=== PATIENT | female | born 1930 | race Caucasian/White ===

== ENCOUNTER → 2016-05-10 | Outpatient (CLI) | payer OTHER ==
[~2016-05-10] MED LIST: ALBINS INH; ALBUAER2 INH; AMX500 PO; ASPEC81 PO; ATEN50TA8 PO; ATV5 PO; CALC500C3 PO; CETI10TA84 PO; CHOL100010 PO; CLC100X PO; CLTP PO; ECRCR TOP; FLVHFA44 INH; HYDR-3126 PO; HYOS1TAB PO; LEVO100T7 PO; LEVO1TAB33 PO; LOSA50TA6 PO; MISCCAP80 PO; MULTCAP33 PO; NXM/40 PO; NYSS/ PO; ONDA4TAB46 PO; POLY335025 PO; PRED-301 PO; PRED10TA PO; PSEU60TA80 PO; TRAZ50TA35 PO; TRIA3AER NAE; TYLOTC500 PO; VSC/10 PO
--- NOTE | 2016-05-10 12:29 | DIAGNOSTIC IMAGING REPORT ---
THORACIC SPINE MRI HISTORY: Pain BACK PAIN TECHNIQUE: Multiplanar multisequence MRI of the thoracic spine was performed without the use of contrast. COMPARISON: None. FINDINGS: Signal characteristics of the T8 vertebral body show evidence for bone marrow edematous change. There is approximate 10-15% compression deformities. Endplate. There is near complete compression deformity of T11. There is posterior displacement of components of the inferior margin of the vertebral body based on the sagittal images. There is also complete compression deformity of L1. Moderate compression deformity of L3 is noted. These in general appear to be secondary to osteoporotic compression deformities. Transaxial images throughout the entire thoracic region shows a mild compression deformity of T8. No significant compromise of the spinal canal is present. Neuroforamina are patent bilaterally. The complete compression deformity of T11 is noted. This appears to be subacute and/or chronic. Inferior margin of the vertebral body is displaced posteriorly with partial compromise of the anterior subarachnoid space. There is no significant impact upon the thoracic spinal cord. There is a moderate narrowing of the neuroforamina bilaterally at this level The L1 vertebral body shows posterior displacement of the superior and posterior margin of the vertebral body. This compromises the anterior posterior dimension of the spinal canal x 5 mm. No significant impact upon the lower aspect of the cord is present. There is a moderate narrowing of the right neuroforamina at osteophytic bases. 1. IMPRESSION: 1. Mild compression deformity of T8 felt to be an osteoporotic compression deformity. 2. Near complete compression deformity of T11 and L1 felt to be nonacute. 3. Considerable degenerative intervertebral disc change throughout the entire thoracic region. 4. All levels show mild posterior displacement of the posterior margins of the vertebral bodies, although a significant and/or high degree of narrowing of the spinal canal is not felt to be present. Electronically signed by: Yifan Mays M.D. 05/10/2016 12:28 PM Dictated Date/Time: 05/10/2016 12:21 PM
== END | disposition home or self-care (01) ==
LOC: C.MRI 11:13
PROVIDERS: ATTEND Internal Medicine
DX: M80.08XS Age-related osteoporosis with current pathological fracture, vertebra(e), sequela (principal); M54.6 Pain in thoracic spine; G89.29 Other chronic pain

== ENCOUNTER 2018-09-13 10:38 | Inpatient (IN) ==
[2018-09-13] MEDS ORDERED: SODIUM CHLORIDE 0.9% 1000ML 500 ML IV ONE (10:46)
[2018-09-13 11:23] LABS: Basophils # (auto) 0.01 K/uL (0-0.2); Basophils % (auto) 0.1 %; Eosinophils # (auto) 0.13 K/uL (0-0.5); Eosinophils % (auto) 0.9 %; Hematocrit (blood only) 40.2 % (37-47); Hemoglobin 13.4 g/dL (12.0-16.0); Immature Granulocytes # (auto) 0.06 K/uL (0.00-0.02); Immature Granulocytes % (auto) 0.4 %; Lymphocytes % (auto) 0.7 %; Mean Corpuscular Hgb Conc 33.3 g/dL (32-36); Mean Corpuscular Volume 95.3 fL (80-100); Monocytes % (auto) 3.9 %; Neutrophils # (auto) 14.34 K/uL (1.4-6.5); Platelet Count 230 K/uL (130-400); RDW Coefficient of Variation 13.2 % (11.5-14.5); Red Blood Count 4.22 M/uL (4.2-5.4); White Blood Count 15.24 K/uL (4.8-10.8)
[2018-09-13 11:40] LABS: BUN Creatinine Ratio 20.8 (10-20); Blood Urea Nitrogen 27 mg/dl (7-18); Calcium 9.1 mg/dl (8.5-10.1); Carbon Dioxide 27 mmol/L (21-32); Chloride 100 mmol/L (98-107); Est GFR (African American) 42.9; Glucose 129 mg/dl (70-99); Potassium 3.6 mmol/L (3.5-5.1); Sodium 136 mmol/L (136-145)
[2018-09-13 11:48] LABS: Troponin I 0.291 ng/ml (0-0.045)
--- NOTE | 2018-09-13 11:56 | XRay Report ---
XR chest 2V routine HISTORY: Atypical chest pain. COMPARISON: Chest 09/15/2014. FINDINGS: There are low lung volumes. No pneumothorax. Mild diffuse interstitial thickening. This is slightly progressed and may represent developing congestive change. No pleural effusions. Multiple co mpression deformity is within the thoracic spine. There is a large hiatus hernia, unchanged. No focal lung consolidations to suggest pneumonia. IMPRESSION: 1. Mild diffuse interstitial thickening which has progressed. This may represent developing congestiv e change. 2. Large hiatus hernia, unchanged. 3. Multiple old compression deformities within the thoracic spine are again noted. Electronically signed by: Joesph Muniz M.D. 09/13/2018 11:55 AM
[2018-09-13] MEDS ORDERED: SODIUM CHLORIDE 0.9% 500 ML IV SCH (12:00)
[2018-09-13] MEDS ORDERED: cefTRIAXone SODIUM 1,000 MG/50 ML BAG IV STA (12:01)
[2018-09-13 12:21] LABS: Appearance Urine Cloudy (Clear); Bacteria Urine Automated Negative (Negative); Bilirubin Urine Negative (Negative); Blood Urine Negative (Negative); Color Urine Yellow; Epithelial Cell Urine Auto 0-5 /lpf (0-5); Glucose Urine UA Negative (Negative); Ketones Urine Negative (Negative); Leukocyte Esterase Urine 3+ (Negative); Nitrite Urine Negative (Negative); Protein Urine Negative (Negative); RBC Urine Automated 0-4 /hpf (0-4); Specific Gravity Urine 1.012 (1.000-1.030); Urobilinogen Urine Negative (Negative); WBC Urine Automated >30 /hpf (0-5)
[2018-09-13 12:50] LABS: Cast Urine Automated 0 /lpf (0-5)
[2018-09-13] MEDS ORDERED: HYDROCORTISONE SOD SUCCINATE 100 MG/2 ML VIAL IV STA (13:26)
--- NOTE | 2018-09-13 13:40 | History & Physical Report ---
Date of Service September 13, 2018 Assessment & Plan (1) Severe sepsis: (2) Acute UTI: (3) Elevated troponin: This is a 87-year-old female who has a significant past medical history of hypertension, hypothyroidism, polymyalgia rheumatica on chronic low-dose prednisone, PVD, CKD stage III, GERD, depression, asthma, chronic right lower extremity wound who presents to [facility] ED secondary to ill feeling x1 day. Upon admission patient met severe sepsis criteria per current CMS guidelines Patient has a leukocytosis of 15 K, intermittent hypotension with SBP less than 100, initial lactic acid 5.0 Blood cultures and urine cultures were obtained She received 500 mL IVF -and then IVF reduced to 100 cc/h secondary to concern for hypoxia. Unfortunately patient's blood pressure dropped to less than 100 so an additional 500 mL fluid bolus was given Her blood pressures continue to remain labile but upon my last evaluation was 130/70; we reduced fluid rate to 60 cc/h due to concern for potential volume overload She did not get the 30ml/kg due go hx of diastolic dysfxn and hypoxia She received broad spectrum IV antibiotics with Zosyn Stress dose steroid hydrocortisone 100mg IV given due to chronic prednisone therapy Source: Likely urosepsis, patient with dysuria, increased urgency and frequency with urination. Urinalysis positive leukoesterase and greater than 30 WBCs Patient with history of UTI in the past, E. coli pansensitive On admission patient also had elevated troponin at 0.291, no chest pain or shortness of breath. ECG revealed normal sinus rhythm heart rate 69, new V2 T wave inversion Repeat lactate 3.0 and repeat troponin trending down at 0.181 Admit to PCU Continue broad-spectrum IV antibiotics, but switch to IV Zosyn until culture returned Await blood culture and urine culture Continue IVF at 60 cc/h, will be monitoring blood pressure frequently Lactic acid every 4 hours until normal Troponin q4h x 2 clear liquid diet for now, will advance as tolerate Will need PT/OT when more stable (4) Acute worsening of stage 3 chronic kidney disease: Baseline creatinine 0.9-1.0 BUN/creatinine 27 and 1.28 today likely in setting of dehydration and sepsis Continue IVF at 60 cc/h BMP in a.m. (5) PMR (polymyalgia rheumatica): Patient is on chronic prednisone 5 mg daily Hold oral prednisone and placed on stress dose steroids IV hydrocortisone 50 mg every 8 hours Patient did receive 100 mg IV hydrocortisone in ED (6) HTN (hypertension): Blood pressure is improving with IVF resuscitation Will hold losartan, amlodipine, atenolol in setting of sepsis Reinitiate antihypertensives when appropriate (7) Wound of right lower extremity: Chronic right lower extremity wound followed by [facility] wound care Last seen by Tahira ALLEN on 09/06 and was to see wound care today Dressing was removed and wound was inspected, healed Consult wound nurse (8) IBS (irritable bowel syndrome): Levsin as needed (9) Asthma, mild persistent: No acute exacerbation Continue inhaled steroid, DuoNeb as needed (10) Depression: Mood stable Patient on trazodone 75 mg at at bedtime, for insomnia (11) GERD (gastroesophageal reflux disease): Continue PPI (12) DVT prophylaxis: heparin sq q12 hr due to weight Disposition: admit to PCU Follow up: PCP Dr. Amaro upon discharge Patient was seen and examined in collaboration with Dr. Bergeron, please see addendum History of Present Illness Chief Complaint: Ill feeling x1 day. Primary Care Provider: Doron Amaro DO This is a 87-year-old female who has a significant past medical history of hypertension, hypothyroidism, polymyalgia rheumatica on chronic low-dose prednisone, PVD, CKD stage III, GERD, depression, asthma, chronic right lower extremity wound who presents to [facility] ED secondary to ill feeling x1 day. Starting approximately 5 days ago patient noticed symptoms of dysuria, increased urgency and increased frequency with urination. She opted to call PCP on 09/11 regarding symptoms. Due to history of UTI in past she was prescribed Macrobid 100 mg twice daily x5 days. She took her first dose last evening and after dose felt nauseated. She woke up this morning feeling very chilled, fatigued, weak, nausea, dry heaves, myalgia and arthralgias. She denies any documented fever or sweats, chest pain, palpitations, lightheadedness, dizziness, hemoptysis, abdominal pain, flank pain, diarrhea, melena, hematochezia. She does list to having a chronic cough but denies any sputum production or increasing cough frequency. She does have SCHMIDT but this is unchanged. She denies any shortness breath at rest. Up until today her appetite has been doing well. Her home health aide is at bedside and states she was in her normal state of health yesterday. She had a family reunion this past weekend in which she did a lot of cooking. She denies any sick contacts. When home health aide presented to see patient today she was a "different person." Patient overall looked for in appearance to aid. Of significance patient was hospitalized in 12/2017 secondary to chronic right lower extremity traumatic wound requiring IV antibiotics. She is continuing to follow with wound care and states, "it is almost healed." Home health aide elicits she required numerous skin grafts to the site to aid in healing. Allergies Allergy/AdvReac Type Severity Reaction Status Date / Time amoxicillin Allergy Mild PT Verified 09/13/18 11:33 [place] AMOXICILLIN clavulanic acid Allergy Mild HIVES Verified 09/13/18 11:33 levofloxacin [From Levaquin] Allergy Mild ITCHING Verified 09/13/18 11:33 metoclopramide Allergy Mild SICK Verified 09/13/18 11:33 clindamycin Allergy Unknown reaction Verified 09/13/18 11:33 unknown diltiazem Allergy Unknown HIVES Verified 09/13/18 11:33 Home Medications Home Medications Medication Instructions Recorded Confirmed Type Eucerin 1 applic TOPICAL QID PRN 12/15/17 09/13/18 History Flovent HFA 2 puff INHALATION BID 12/15/17 09/13/18 History Premarin See Rx Instructions .ROUTE .COMPLEX 12/15/17 09/13/18 History PreserVision AREDS 1 cap PO BID 12/15/17 09/13/18 History Probiotic 3,000 mmu cells PO DAILY 12/15/17 09/13/18 History acetaminophen 500 mg PO BID 12/15/17 09/13/18 History amlodipine 5 mg PO DAILY 12/15/17 09/13/18 History aspirin 81 mg PO DAILY 12/15/17 09/13/18 History atenolol 100 mg PO DAILY 12/15/17 09/13/18 History cholecalciferol (vitamin D3) 1,000 unit PO DAILY 12/15/17 09/13/18 History cranberry 500 mg PO DAILY 12/15/17 09/13/18 History docusate sodium [Colace] 100 mg PO BID 12/15/17 09/13/18 History esomeprazole magnesium 40 mg PO DAILY 12/15/17 09/13/18 History fluticasone propionate [Flonase 1 spray INTRANASAL BID 12/15/17 09/13/18 History Allergy Relief] hyoscyamine sulfate [Levsin] 0.125 mg PO QID PRN 12/15/17 09/13/18 History ipratropium bromide 2 spray INTRANASAL BID PRN 12/15/17 09/13/18 History levothyroxine [Synthroid] 100 mcg PO QAM 12/15/17 09/13/18 History lorazepam 0.5 mg PO TID PRN 12/15/17 09/13/18 History losartan 50 mg PO BID 12/15/17 09/13/18 History prednisone 5 mg PO DAILY 12/15/17 09/13/18 History solifenacin [Vesicare] 10 mg PO DAILY 12/15/17 09/13/18 History tramadol 50 mg PO BID PRN 12/15/17 09/13/18 History trazodone 75 mg PO HS 12/15/17 09/13/18 History albuterol sulfate 2.5 mg INHALATION QID PRN 09/13/18 09/13/18 History calcium carbonate [Tums] 200 mg PO Q4H PRN 09/13/18 09/13/18 History cetirizine 10 mg PO DAILY PRN 09/13/18 09/13/18 History collagenase clostridium histo. 1 applic TOPICAL UD 09/13/18 09/13/18 History [Santyl] guaifenesin [Mucinex] 600 mg PO BID 09/13/18 09/13/18 History hydroxyzine HCl 25 mg PO Q6H PRN 09/13/18 09/13/18 History nitrofurantoin monohyd/m-cryst 100 mg PO BID 09/13/18 09/13/18 History ondansetron HCl [Zofran] 4 mg PO TID PRN 09/13/18 09/13/18 History Past Med/Surg History Medical History PMR (polymyalgia rheumatica) (Chronic) IBS (irritable bowel syndrome) (Chronic) Asthma, mild persistent (Chronic) Depression (Chronic) Hypothyroidism (Chronic) HTN (hypertension) (Chronic) GERD (gastroesophageal reflux disease) (Chronic) CKD (chronic kidney disease) stage 3, GFR 30-59 ml/min (Chronic) PVD (peripheral vascular disease) (Chronic) Surgical History History of skin graft (Chronic) secondary to non healing wound to RLE approx 5 years ago History of appendectomy (Chronic) History of cholecystectomy (Chronic) History of tonsillectomy (Chronic) Status post epidural steroid injection (Chronic) Hx of fracture of leg (Resolved) L Leg s/p repair Family History Father , 74 Coronary heart disease Black lung Mother Coronary heart disease Brother Coronary heart disease Pulmonary embolism Social History Preferred Language: Icelandic Communication Ability: Effective Visual Impairment: Limited Hearing Ability: Hard of Hearing Beliefs That Will Affect Care: None marital status: Current Living Situation: Family Current Living Situation Comment: grand daughter lives there, 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 Physical Exam Physical Exam: Gen: Elderly, female, ill-appearing, lying in bed, able to answer questions appropriately and converse easily Head: Normocephalic, Atraumatic Eyes: Sclera normal, no conjunctival injection, PERRLA, EOMI ENT: Gross hearing intact, normal pharynx, mucous membranes dry Neck: supple, no adenopathy, No JVD, no bruit, Resp: Clear to auscultation b/l with diminished breath sounds at bases, no wheeze, rales, rhonchi. 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 b/ venous stasis. evidence of RLE lateral ulceration that is healed. no surrounding erythema, edema or warmth. +anterior tibial skin tear noted with cutting off bandage Skin: warm, dry, no rash, negative turgor, cap refill < 2sec Neuro: Alert and oriented x 3, speech normal but slowed, good mood/affect, cran nerve 2-12 intact grossly : deferred Results & Data Vital Signs (Past 12 Hours) Vital Signs Temp Pulse Pulse Resp BP BP Pulse Ox 09/13/18 13:09 69 29 H 96/41 L 93 09/13/18 13:05 68 25 H 96/41 L 92 09/13/18 13:02 67 25 H 96/41 L 93 09/13/18 13:00 67 28 H 91 09/13/18 12:58 67 26 H 100/45 L 92 09/13/18 12:50 64 24 90 09/13/18 12:40 65 23 93 09/13/18 12:30 68 24 95/45 L 94 09/13/18 12:20 69 18 94 09/13/18 12:10 72 29 H 95 09/13/18 12:00 76 26 H 137/84 93 09/13/18 11:54 94 09/13/18 11:30 72 24 118/51 L 94 09/13/18 11:20 68 24 90 09/13/18 11:19 92 09/13/18 11:10 70 25 H 92 09/13/18 11:07 70 23 92 09/13/18 11:03 70 25 H 93/45 L 92 09/13/18 10:39 36.8 C 80 20 102/53 L 94 Laboratory Results Short CBC 09/13/18 Range/Units 11:16 WBC 15.24 H (4.8-10.8) K/uL Hgb 13.4 (12.0-16.0) g/dL Hct 40.2 (37-47) % Plt Count 230 (130-400) K/uL BMP 09/13/18 11:16 Sodium 136 Potassium 3.6 Chloride 100 Carbon Dioxide 27 BUN 27 H Creatinine 1.28 H Glucose 129 H Calcium 9.1 Cardiac Enzymes 09/13/18 Range/Units 11:16 Troponin I 0.291 H* (0-0.045) ng/ml Urine 09/13/18 Range/Units 12:04 Urine Color Yellow Urine Appearance Cloudy A (Clear) Urine pH 7.0 (4.5-7.5) Ur Specific [place] 1.012 (1.000-1.030) Urine Protein Negative (Negative) Urine Glucose (UA) Negative (Negative) Diagnostic Findings CXR: IMPRESSION: 1. Mild diffuse interstitial thickening which has progressed. This may represent developing congestive change. 2. Large hiatus hernia, unchanged. 3. Multiple old compression deformities within the thoracic spine are again noted. Medications Administered Sodium Chloride (Nss 1000ml) 1,000 mls @ 60 mls/hr IV .[id number] KAILEY Stop: 10/13/18 13:59 Last Admin: 09/13/18 14:47 Dose: 60 mls/hr Documented by: [id number] Discontinued Medications Hydrocortisone Sodium Succinate (Solu-Cortef) 100 mg IV NOW STA Stop: 09/13/18 13:27 Last Admin: 09/13/18 13:42 Dose: 100 mg Documented by: [id number] Sodium Chloride (Nss 1000ml) 500 mls @ 999 mls/hr IV .Q31M ONE Stop: 09/13/18 11:16 Last Infusion: 09/13/18 11:49 Dose: 0 mls/hr Documented by: [id number] Admin: 09/13/18 11:18 Dose: 999 mls/hr Documented by: [id number] Sodium Chloride (Nss) 500 mls @ 100 mls/hr IV .Q5H KAILEY Stop: 10/13/18 11:59 Last Infusion: 09/13/18 13:37 Dose: 0 mls/hr Documented by: [id number] Infusion: 09/13/18 13:11 Dose: 999 mls/hr Documented by: [id number] Admin: 09/13/18 12:10 Dose: 100 mls/hr Documented by: [id number] Ceftriaxone Sodium (Rocephin) 1,000 mg in 50 mls @ 100 mls/hr IV NOW STA Stop: 09/13/18 12:30 Last Infusion: 09/13/18 13:38 Dose: 0 mls/hr Documented by: [id number] Admin: 09/13/18 13:09 Dose: 100 mls/hr Documented by: [id number] ECG Rate (beats per minute): 69 Rhythm: normal sinus Code Status & VTE Plan Code Status Full Code VTE Prophylaxis Plan VTE Prophylaxis will be ordered: Yes Supervising Physician Co-Signing Physician Notes Attending Addendum: care coordinated with THO Godoy. please refer to her notes for full details, I agree with her notes patient seen and examined, records reviewed by myself as well on exam, patient seen resting, not in distress, awake and alert, conversant Answers all questions appropriately States she feels tired, has suprapubic discomfort Denies chest pain, shortness of breath, dizziness, palpitations no other symptoms VS noted and reviewed oriented , x3not in distress, speaks in sentences with no effort nor accessory muscle use normal rate, regular rhythm, no murmurs clear breath sounds bilaterally non distended, soft, mild suprapubic tenderness no bipedal edema, erythema, warmth no neuro deficits WBC 15.24 Hg 13.4 Crea 1.28 ASSESSMENT AND PLAN Severe sepsis, likely secondary to UTI Episode of hypotension in the ER, IV fluids and hydrocortisone Sepsis protocol followed Follow-up cultures Empiric Zosyn IV Stress dose hydrocortisone in light of her chronic prednisone use for PMR Monitor blood pressure closely Mild troponin elevation No cardiac symptoms EKG no signs of acute ischemia Troponin levels trended Echocardiogram ordered Acute worsening of CKD stage III Likely secondary to prerenal etiology, sepsis Continue to monitor, gentle IV fluids other diagnoses and plan of care as per THO Godoy notes Richard Bergeron MD
--- NOTE | 2018-09-13 13:56 | Emergency Department Note ---
Entered by Nathanael Miles acting as a scribe for David Mcpherson History of Present Illness General Chief complaint: Urinary Symptoms Stated complaint: UTI - SENT BY DR AMARO Time Seen by Provider: 09/13/18 10:42 Source: patient History of Present Illness Provider complaint: Urianry symptoms Onset (ago): week(s) 1 Location: abdomen Severity: similar to prior episodes Pain Consistency: + constant Maximum Pain Intensity: 5 Current Pain Intensity: 5 Associated symptoms: + fever/chills (No fever) and + other (Positive dysuria ) The patient is an 87 year old female who presents to the Emergency Room with com plaints of constant urinary symptoms that started about a week ago. The patient notes that she felt dysuria 3-4 days prior to contacting her doctor about her symptoms. After calling Dr. Amaro, she was diagnosed with a UTI and prescribed Nitrofurantoin. Per her hand bindery assembly worker, the patient has a history of UTIs and normally is prescribed Bactrim. The hand bindery assembly worker notes that her first dose of her medication was last night with supper, but this morning she woke up with chills. The patient notes she was sent her by Dr. Amaro, because he believes it might be a systemic infection. The hand bindery assembly worker notes that the patient has not had a UTI in a long time but she has been wearing Depends more frequently, which makes her prone to UTIs. The patient also notes that she has some lower abdominal sensitivity. She also mentioned that her upper extremities feel sore and heavy, however her hand bindery assembly worker notes it is her polymyalgia rheumatica. Home Medications Home Medications Medication Instructions Recorded Confirmed Type Eucerin 1 applic TOPICAL QID PRN 12/15/17 09/13/18 History Flovent HFA 2 puff INHALATION BID 12/15/17 09/13/18 History Premarin See Rx Instructions .ROUTE .COMPLEX 12/15/17 09/13/18 History PreserVision AREDS 1 cap PO BID 12/15/17 09/13/18 History Probiotic 3,000 mmu cells PO DAILY 12/15/17 09/13/18 History acetaminophen 500 mg PO BID 12/15/17 09/13/18 History amlodipine 5 mg PO DAILY 12/15/17 09/13/18 History aspirin 81 mg PO DAILY 12/15/17 09/13/18 History atenolol 100 mg PO DAILY 12/15/17 09/13/18 History cholecalciferol (vitamin D3) 1,000 unit PO DAILY 12/15/17 09/13/18 History cranberry 500 mg PO DAILY 12/15/17 09/13/18 History docusate sodium [Colace] 100 mg PO BID 12/15/17 09/13/18 History esomeprazole magnesium 40 mg PO DAILY 12/15/17 09/13/18 History fluticasone propionate [Flonase 1 spray INTRANASAL BID 12/15/17 09/13/18 History Allergy Relief] hyoscyamine sulfate [Levsin] 0.125 mg PO QID PRN 12/15/17 09/13/18 History ipratropium bromide 2 spray INTRANASAL BID PRN 12/15/17 09/13/18 History levothyroxine [Synthroid] 100 mcg PO TIDM 12/15/17 09/13/18 History lorazepam 0.5 mg PO TID PRN 12/15/17 09/13/18 History losartan 50 mg PO BID 12/15/17 09/13/18 History prednisone 5 mg PO DAILY 12/15/17 09/13/18 History solifenacin [Vesicare] 10 mg PO DAILY 12/15/17 09/13/18 History tramadol 50 mg PO BID PRN 12/15/17 09/13/18 History trazodone 75 mg PO HS 12/15/17 09/13/18 History albuterol sulfate 2.5 mg INHALATION QID PRN 09/13/18 09/13/18 History calcium carbonate [Tums] 200 mg PO Q4H PRN 09/13/18 09/13/18 History cetirizine 10 mg PO DAILY PRN 09/13/18 09/13/18 History collagenase clostridium histo. 1 applic TOPICAL UD 09/13/18 09/13/18 History [Santyl] guaifenesin [Mucinex] 600 mg PO BID 09/13/18 09/13/18 History hydroxyzine HCl 25 mg PO Q6H PRN 09/13/18 09/13/18 History nitrofurantoin monohyd/m-cryst 100 mg PO BID 09/13/18 09/13/18 History ondansetron HCl [Zofran] 4 mg PO TID PRN 09/13/18 09/13/18 History Allergies Allergy/AdvReac Type Severity Reaction Status Date / Time amoxicillin Allergy Mild PT Verified 09/13/18 11:33 [place] AMOXICILLIN clavulanic acid Allergy Mild HIVES Verified 09/13/18 11:33 levofloxacin [From Levaquin] Allergy Mild ITCHING Verified 09/13/18 11:33 metoclopramide Allergy Mild SICK Verified 09/13/18 11:33 clindamycin Allergy Unknown reaction Verified 09/13/18 11:33 unknown diltiazem Allergy Unknown HIVES Verified 09/13/18 11:33 Past Med/Surg History Medical History PMR (polymyalgia rheumatica) (Chronic) IBS (irritable bowel syndrome) (Chronic) Asthma, mild persistent (Chronic) Depression (Chronic) Hypothyroidism (Chronic) HTN (hypertension) (Chronic) GERD (gastroesophageal reflux disease) (Chronic) CKD (chronic kidney disease) stage 3, GFR 30-59 ml/min (Chronic) PVD (peripheral vascular disease) (Chronic) Surgical History History of skin graft (Chronic) secondary to non healing wound to RLE approx 5 years ago History of appendectomy (Chronic) History of cholecystectomy (Chronic) History of tonsillectomy (Chronic) Status post epidural steroid injection (Chronic) Hx of fracture of leg (Resolved) L Leg s/p repair Family History Father , 74 Coronary heart disease Black lung Mother Coronary heart disease Brother Coronary heart disease Pulmonary embolism Social History Preferred Language: Irish Communication Ability: Effective Visual Impairment: Limited Hearing Ability: Hard of Hearing Beliefs That Will Affect Care: None marital status: Current Living Situation: Family Current Living Situation Comment: grand daughter lives there, 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 and A total of 10 systems reviewed and were otherwise negative Physical Exam Vital Signs Vital Signs - 24 hr 09/13/18 10:39 09/13/18 11:03 09/13/18 11:07 Temperature 36.8 C Temperature Source Oral Sepsis Recent Fever Within 48 Hours No Sepsis New/Unexplained Change in Mental Status No Sepsis Action Taken by Nursing No Action Required Pulse Rate 80 70 70 Pulse Rate [Finger] Pulse Rate from SpO2 Sensor 70 70 Respiratory Rate 20 25 H 23 Respiratory Effort / Characteristics Non-Labored Spontaneous Respiratory Depth Normal Blood Pressure 102/53 L 93/45 L Blood Pressure [Right Arm] Blood Pressure Mean 69 61 Blood Pressure Mean [Right Arm] Pulse Oximetry 94 92 92 Oxygen Delivery Method Room Air Nasal Cannula Nasal Cannula Oxygen Flow Rate 3 3 09/13/18 11:10 09/13/18 11:19 09/13/18 11:20 Temperature Temperature Source Sepsis Recent Fever Within 48 Hours Sepsis New/Unexplained Change in Mental Status Sepsis Action Taken by Nursing Pulse Rate 70 68 Pulse Rate [Finger] Pulse Rate from SpO2 Sensor 70 68 Respiratory Rate 25 H 24 Respiratory Effort / Characteristics Respiratory Depth Blood Pressure Blood Pressure [Right Arm] Blood Pressure Mean Blood Pressure Mean [Right Arm] Pulse Oximetry 92 92 90 Oxygen Delivery Method Nasal Cannula Nasal Cannula Nasal Cannula Oxygen Flow Rate 3 3 3 09/13/18 11:30 09/13/18 11:54 09/13/18 12:00 Temperature Temperature Source Sepsis Recent Fever Within 48 Hours Sepsis New/Unexplained Change in Mental Status Sepsis Action Taken by Nursing Pulse Rate 72 76 Pulse Rate [Finger] Pulse Rate from SpO2 Sensor 72 76 76 Respiratory Rate 24 26 H Respiratory Effort / Characteristics Respiratory Depth Blood Pressure 118/51 L 137/84 Blood Pressure [Right Arm] Blood Pressure Mean 73 101 Blood Pressure Mean [Right Arm] Pulse Oximetry 94 94 93 Oxygen Delivery Method Nasal Cannula Nasal Cannula Nasal Cannula Oxygen Flow Rate 3 3 3 09/13/18 12:10 09/13/18 12:20 09/13/18 12:30 Temperature Temperature Source Sepsis Recent Fever Within 48 Hours Sepsis New/Unexplained Change in Mental Status Sepsis Action Taken by Nursing Pulse Rate 72 69 68 Pulse Rate [Finger] Pulse Rate from SpO2 Sensor 72 69 68 Respiratory Rate 29 H 18 24 Respiratory Effort / Characteristics Respiratory Depth Blood Pressure 95/45 L Blood Pressure [Right Arm] Blood Pressure Mean 61 Blood Pressure Mean [Right Arm] Pulse Oximetry 95 94 94 Oxygen Delivery Method Nasal Cannula Nasal Cannula Nasal Cannula Oxygen Flow Rate 3 3 3 09/13/18 12:40 09/13/18 12:50 09/13/18 12:58 Temperature Temperature Source Sepsis Recent Fever Within 48 Hours Sepsis New/Unexplained Change in Mental Status Sepsis Action Taken by Nursing Pulse Rate 65 64 67 Pulse Rate [Finger] Pulse Rate from SpO2 Sensor 65 65 68 Respiratory Rate 23 24 26 H Respiratory Effort / Characteristics Respiratory Depth Blood Pressure 100/45 L Blood Pressure [Right Arm] Blood Pressure Mean 63 Blood Pressure Mean [Right Arm] Pulse Oximetry 93 90 92 Oxygen Delivery Method Nasal Cannula Nasal Cannula Nasal Cannula Oxygen Flow Rate 3 3 3 09/13/18 13:00 09/13/18 13:02 09/13/18 13:05 Temperature Temperature Source Sepsis Recent Fever Within 48 Hours Sepsis New/Unexplained Change in Mental Status Sepsis Action Taken by Nursing Pulse Rate 67 67 68 Pulse Rate [Finger] Pulse Rate from SpO2 Sensor 63 68 69 Respiratory Rate 28 H 25 H 25 H Respiratory Effort / Characteristics Respiratory Depth Blood Pressure 96/41 L 96/41 L Blood Pressure [Right Arm] Blood Pressure Mean 59 59 Blood Pressure Mean [Right Arm] Pulse Oximetry 91 93 92 Oxygen Delivery Method Nasal Cannula Nasal Cannula Nasal Cannula Oxygen Flow Rate 3 3 3 09/13/18 13:09 09/13/18 13:10 09/13/18 13:20 Temperature Temperature Source Sepsis Recent Fever Within 48 Hours Sepsis New/Unexplained Change in Mental Status Sepsis Action Taken by Nursing Pulse Rate 69 75 Pulse Rate [Finger] 69 Pulse Rate from SpO2 Sensor 68 75 Respiratory Rate 29 H 27 H 22 Respiratory Effort / Characteristics Respiratory Depth Blood Pressure Blood Pressure [Right Arm] 96/41 L Blood Pressure Mean Blood Pressure Mean [Right Arm] 59 Pulse Oximetry 93 93 94 Oxygen Delivery Method Nasal Cannula Nasal Cannula Nasal Cannula Oxygen Flow Rate 3 3 3 09/13/18 13:25 09/13/18 13:30 09/13/18 13:40 Temperature Temperature Source Sepsis Recent Fever Within 48 Hours Sepsis New/Unexplained Change in Mental Status Sepsis Action Taken by Nursing Pulse Rate 75 76 75 Pulse Rate [Finger] Pulse Rate from SpO2 Sensor 76 75 75 Respiratory Rate 20 27 H 24 Respiratory Effort / Characteristics Respiratory Depth Blood Pressure 119/59 L 107/60 Blood Pressure [Right Arm] Blood Pressure Mean 79 75 Blood Pressure Mean [Right Arm] Pulse Oximetry 94 94 94 Oxygen Delivery Method Nasal Cannula Nasal Cannula Nasal Cannula Oxygen Flow Rate 3 3 3 09/13/18 13:44 Temperature Temperature Source Sepsis Recent Fever Within 48 Hours Sepsis New/Unexplained Change in Mental Status Sepsis Action Taken by Nursing Pulse Rate 76 Pulse Rate [Finger] Pulse Rate from SpO2 Sensor 76 Respiratory Rate 23 Respiratory Effort / Characteristics Respiratory Depth Blood Pressure 118/55 L Blood Pressure [Right Arm] Blood Pressure Mean 76 Blood Pressure Mean [Right Arm] Pulse Oximetry 95 Oxygen Delivery Method Nasal Cannula Oxygen Flow Rate 3 GENERAL: She is oriented to person, place, and time. She appears well-developed and well-nourished. She does not appear distressed. HENT: Exam performed. Head: Normocephalic and atraumatic. Right Ear: External ear normal. No mastoid tenderness. Left Ear: External ear normal. No mastoid tenderness. Mouth/Throat: The oropharynx is clear and moist. No trismus in the jaw. No dental abscesses or uvula swelling. No oropharyngeal exudate or tonsillar abscesses. EYES: Conjunctivae and EOM are normal. Pupils are equal, round, and reactive to light. Right eye exhibits no discharge. Left eye exhibits no discharge. No sc leral icterus. NECK: Normal range of motion. Neck supple. No JVD present. No spinous process tenderness present. No carotid bruit present. No rigidity. No tracheal deviation and normal range of motion present. No Brudzinski's sign and no Kernig's sign noted. CV: Normal rate, regular rhythm, normal heart sounds and intact distal pulses. There is no peripheral edema. Palpable radial pulses bue. PULM/CHEST: Effort normal and breath sounds normal. No respiratory distress. No stridor. She has no wheezes. She has no rales. Chest Wall: She exhibits no tenderness. ABD: The abdomen is soft. Bowel sounds are normal. She has no distension. No mass is present. There is no tenderness. There is no rebound, no guarding, no Marin's sign and no tenderness at McBurney's point. Rovsig negative MUSC/SKEL: Normal range of motion. There is no peripheral edema, tenderness or deformity. LYMPH: No cervical adenopathy. NEURO: She is alert and oriented to person, place, and time. She has normal strength. No cranial nerve deficit or sensory deficit. Coordination and gait normal. GCS eye subscore is 4. GCS verbal subscore is 5. GCS motor subscore is 6. cerbellar tests wnl. SKIN: Skin is warm and dry. She is not diaphoretic. PSYCH: She has a normal mood and affect. Her behavior is normal. Judgment and thought content normal. Course 1045: Past medical records reviewed. The patient was evaluated in room C03, and a complete history and physical examination were performed. 1154: The patient's labs are elevated with a leukocytosis of 15.24, lactic acid of 5.0, a troponin of 0.291 and creatinine of 1.28. After the patient received a 500cc bolus of normal saline, her O2 sat dropped to 88% on room air. The patient was then put on 2L NC and her sat went up to 94%. The patient's chest x-ray after the bolus showed mild cardiomegaly with cephalization. Given the patient's developing hypoxia and chest x-ray findings, aggressive hydration with 30cc/kg will not be pursued at this time. The patient will be given gentle hydration and started on antibiotics for presumed sepsis from UTI. Blood cultures will be sent. The patient's elevated troponin is thought to not be due to ACS as the patient has not reported any true chest pain and her EKG shows only new T wave inversion in lead V2. The troponin will be trended by the admitting hospitalist team. No anticoagulation at this time. 1249: S/P 500cc fluid bolus the patient's repeat POC lactic was 3.4. We will continue the gentle hydration. 1250: [facility] under Dr. Elyssa Hill, about the patient's case. They will be accepting the patient for further evaluation. Consultations Consultation #1: I spoke to [facility] PAC under Dr. Elyssa Hill, about the patient's case. They will be accepting the patient for further evaluation. Time: 12:50 Administered Medications Sodium Chloride (Nss) 500 mls @ 100 mls/hr IV .Q5H KAILEY Stop: 10/13/18 11:59 Last Infusion: 09/13/18 13:37 Dose: 0 mls/hr Documented by: [id number] Infusion: 09/13/18 13:11 Dose: 999 mls/hr Documented by: [id number] Admin: 09/13/18 12:10 Dose: 100 mls/hr Documented by: [id number] Discontinued Medications Hydrocortisone Sodium Succinate (Solu-Cortef) 100 mg IV NOW STA Stop: 09/13/18 13:27 Last Admin: 09/13/18 13:42 Dose: 100 mg Documented by: [id number] Sodium Chloride (Nss 1000ml) 500 mls @ 999 mls/hr IV .Q31M ONE Stop: 09/13/18 11:16 Last Infusion: 09/13/18 11:49 Dose: 0 mls/hr Documented by: [id number] Admin: 09/13/18 11:18 Dose: 999 mls/hr Documented by: [id number] Ceftriaxone Sodium (Rocephin) 1,000 mg in 50 mls @ 100 mls/hr IV NOW STA Stop: 09/13/18 12:30 Last Infusion: 09/13/18 13:38 Dose: 0 mls/hr Documented by: [id number] Admin: 09/13/18 13:09 Dose: 100 mls/hr Documented by: [id number] Medical Decision Making Medical Records Attestation: I reviewed the patient's medical records. Home Medications Current Medication List: was personally reviewed by me Laboratory Data Attestation: I reviewed the patient's lab results. Result diagrams: 09/13/18 11:16 09/13/18 11:16 Lab Results 09/13/18 09/13/18 09/13/18 Range/Units 11:16 11:16 11:16 WBC 15.24 H (4.8-10.8) K/uL RBC 4.22 (4.2-5.4) M/uL Hgb 13.4 (12.0-16.0) g/dL Hct 40.2 (37-47) % MCV 95.3 (80-100) fL MCH 31.8 (25-34) pg MCHC 33.3 (32-36) g/dL RDW Std Deviation 46.0 (36.4-46.3) fL RDW Coeff of Bulmaro 13.2 (11.5-14.5) % Plt Count 230 (130-400) K/uL MPV 12.0 H (7.4-10.4) fL Immature Gran % (Auto) 0.4 % Neut % (Auto) 94.0 % Lymph % (Auto) 0.7 % Bowie % (Auto) 3.9 % Eos % (Auto) 0.9 % Baso % (Auto) 0.1 % Immature Gran # (Auto) 0.06 H (0.00-0.02) K/uL Neut # (Auto) 14.34 H (1.4-6.5) K/uL Lymph # (Auto) 0.10 L (1.2-3.4) K/uL Bowie # (Auto) 0.60 H (0.11-0.59) K/uL Eos # (Auto) 0.13 (0-0.5) K/uL Baso # (Auto) 0.01 (0-0.2) K/uL Sodium 136 (136-145) mmol/L Potassium 3.6 (3.5-5.1) mmol/L Chloride 100 (98-107) mmol/L Carbon Dioxide 27 (21-32) mmol/L Anion Gap 9.0 (3-11) BUN 27 H (7-18) mg/dl Creatinine 1.28 H (0.6-1.2) mg/dl Est Cr Clr Drug Dosing Not Reportable Est GFR ( Amer) 42.9 Est GFR (Non-Af Amer) 37.0 BUN/Creatinine Ratio 20.8 H (10-20) Glucose 129 H (70-99) mg/dl POC Lactic Acid Juvenal (0.90-1.70) mmol/L Lactate 5.0 H* (0.4-2.0) mmol/L Calcium 9.1 (8.5-10.1) mg/dl Troponin I 0.291 H* (0-0.045) ng/ml Urine Color Urine Appearance (Clear) Urine pH (4.5-7.5) Ur Specific [place] (1.000-1.030) Urine Protein (Negative) Urine Glucose (UA) (Negative) Urine Ketones (Negative) Urine Blood (Negative) Urine Nitrite (Negative) Urine Bilirubin (Negative) Urine Urobilinogen (Negative) Ur Leukocyte Esterase (Negative) Urine WBC (Auto) (0-5) /hpf Urine RBC (Auto) (0-4) /hpf U Hyaline Cast (Auto) (0-5) /lpf U Epithel Cells (Auto) (0-5) /lpf Urine Bacteria (Auto) (Negative) 09/13/18 09/13/18 Range/Units 12:04 12:24 WBC (4.8-10.8) K/uL RBC (4.2-5.4) M/uL Hgb (12.0-16.0) g/dL Hct (37-47) % MCV (80-100) fL MCH (25-34) pg MCHC (32-36) g/dL RDW Std Deviation (36.4-46.3) fL RDW Coeff of Bulmaro (11.5-14.5) % Plt Count (130-400) K/uL MPV (7.4-10.4) fL Immature Gran % (Auto) % Neut % (Auto) % Lymph % (Auto) % Bowie % (Auto) % Eos % (Auto) % Baso % (Auto) % Immature Gran # (Auto) (0.00-0.02) K/uL Neut # (Auto) (1.4-6.5) K/uL Lymph # (Auto) (1.2-3.4) K/uL Bowie # (Auto) (0.11-0.59) K/uL Eos # (Auto) (0-0.5) K/uL Baso # (Auto) (0-0.2) K/uL Sodium (136-145) mmol/L Potassium (3.5-5.1) mmol/L Chloride (98-107) mmol/L Carbon Dioxide (21-32) mmol/L Anion Gap (3-11) BUN (7-18) mg/dl Creatinine (0.6-1.2) mg/dl Est Cr Clr Drug Dosing Est GFR ( Amer) Est GFR (Non-Af Amer) BUN/Creatinine Ratio (10-20) Glucose (70-99) mg/dl POC Lactic Acid Juvenal 3.41 H (0.90-1.70) mmol/L Lactate (0.4-2.0) mmol/L Calcium (8.5-10.1) mg/dl Troponin I (0-0.045) ng/ml Urine Color Yellow Urine Appearance Cloudy A (Clear) Urine pH 7.0 (4.5-7.5) Ur Specific [place] 1.012 (1.000-1.030) Urine Protein Negative (Negative) Urine Glucose (UA) Negative (Negative) Urine Ketones Negative (Negative) Urine Blood Negative (Negative) Urine Nitrite Negative (Negative) Urine Bilirubin Negative (Negative) Urine Urobilinogen Negative (Negative) Ur Leukocyte Esterase 3+ H (Negative) Urine WBC (Auto) >30 H (0-5) /hpf Urine RBC (Auto) 0-4 (0-4) /hpf U Hyaline Cast (Auto) 0 (0-5) /lpf U Epithel Cells (Auto) 0-5 (0-5) /lpf Urine Bacteria (Auto) Negative (Negative) Imaging Data Radiologist's Impression: Radiology results as stated below per my review and the radiologist's interpretation: XR chest 2V routine HISTORY: Atypical chest pain. COMPARISON: Chest 09/15/2014. FINDINGS: There are low lung volumes. No pneumothorax. Mild diffuse interstitial thickening. This is slightly progressed and may represent developing congestive change. No pleural effusions. Multiple compression deformity is within the thoracic spine. There is a large hiatus hernia, unchanged. No focal lung consolidations to suggest pneumonia. IMPRESSION: 1. Mild diffuse interstitial thickening which has progressed. This may represent developing congestive change. 2. Large hiatus hernia, unchanged. 3. Multiple old compression deformities within the thoracic spine are again noted. Electronically signed by: Joesph Muniz M.D. 09/13/2018 11:55 AM ECG Data Attestation: I personally reviewed and interpreted this ECG as follows: Indication: other (sepsis) Rate (beats per minute): 69 Rhythm: normal sinus Findings: + other (DC, QRS, and QTC intervals are within normal limits. LVH noted), + RBBB and + T-wave inversion (leads aVL and V2) Comparison ECG Date: from (September 2014) Change: the following changes noted (TWI in lead aVL is old ) Blood Pressure Blood Pressure Findings: Low blood pressure Blood Pressure Disposition: further management by hospitalist TAMMY Narrative 1045: Past medical records reviewed. The patient was evaluated in room C03, and a complete history and physical examination were performed. 1154: The patient's labs are elevated with a leukocytosis of 15.24, lactic acid of 5.0, a troponin of 0.291 and creatinine of 1.28. After the patient received a 500cc bolus of normal saline, her O2 sat dropped to 88% on room air. The patient was then put on 2L NC and her sat went up to 94%. The patient's chest x-ray after the bolus showed mild cardiomegaly with cephalization. Given the patient's developing hypoxia and chest x-ray findings, aggressive hydration with 30cc/kg will not be pursued at this time. The patient will be given gentle hydration and started on antibiotics for presumed sepsis from UTI. Blood cultures will be sent. The patient's elevated troponin is thought to not be due to ACS as the patient has not reported any true chest pain and her EKG shows only new T wave inversion in lead V2. The troponin will be trended by the admitting hospitalist team. No anticoagulation at this time. 1249: S/P 500cc fluid bolus the patient's repeat POC lactic was 3.4. We will continue the gentle hydration. 1250: I spoke to Jennifer Grant PAC under Dr. Elyssa Grant Hospitalist, about the patient's case. They will be accepting the patient for further evaluation. Impression & Plan Severe sepsis, Hypoxia, Acute UTI, Elevated troponin Critical Care Time Critical Care Time: Yes Total Critical Care Time: 42 I have personally spent greater than 42 minutes of critical care time in the direct management of this patient. This includes bedside care, interpretation of diagnostic studies, and testing, discussion with consultants, patient, and family members, and other required patient management activities. This 42 minutes is in excess of all separately billable procedures. Discharge Plan Visit Data Chief Complaint: Urinary Symptoms Stated Complaint: UTI - SENT BY DR AMARO ED Provider: David Mcpherson Discharge Problem: Severe sepsis, Hypoxia, Acute UTI, Elevated troponin Patient Disposition: Being Evaluated by Hospitalist Forms Stand Alone Forms: My [facility] Prescriptions Prescriptions: No Action losartan 50 mg Tablet 50 mg PO BID RF: 0 trazodone 50 mg Tablet 75 mg PO HS RF: 0 atenolol 100 mg Tablet 100 mg PO DAILY RF: 0 prednisone 5 mg Tablet 5 mg PO DAILY RF: 0 amlodipine 5 mg Tablet 5 mg PO DAILY RF: 0 tramadol 50 mg Tablet 50 mg PO BID PRN (Reason: Pain) RF: 0 levothyroxine [Synthroid] 100 mcg Tablet 100 mcg PO TIDM RF: 0 lorazepam 0.5 mg Tablet 0.5 mg PO TID PRN (Reason: Anxiety) RF: 0 Premarin 0.625 mg/gram Cream See Rx Instructions .ROUTE .COMPLEX RF: 0 esomeprazole magnesium 40 mg Capsule,Delayed Release(Dr/Ec) 40 mg PO DAILY RF: 0 fluticasone propionate [Flonase Allergy Relief] 50 mcg/actuation [place], Suspension 1 spray INTRANASAL BID RF: 0 ipratropium bromide 0.03 % [place],Non-Aerosol 2 spray INTRANASAL BID PRN (Reason: Allergy Symptoms) RF: 0 cranberry 500 mg Capsule 500 mg PO DAILY RF: 0 Flovent HFA 110 mcg/actuation Hfa Aerosol Inhaler 2 puff INHALATION BID RF: 0 solifenacin [Vesicare] 10 mg Tablet 10 mg PO DAILY RF: 0 aspirin 81 mg Tablet,Delayed Release (Dr/Ec) 81 mg PO DAILY RF: 0 hyoscyamine sulfate [Levsin] 0.125 mg Tablet 0.125 mg PO QID PRN (Reason: Abdominal Pain) RF: 0 docusate sodium [Colace] 100 mg Capsule 100 mg PO BID RF: 0 acetaminophen 500 mg Capsule 500 mg PO BID RF: 0 Eucerin Cream 1 applic TOPICAL QID PRN (Reason: Dry Skin) RF: 0 cholecalciferol (vitamin D3) 1,000 unit Capsule 1,000 unit PO DAILY RF: 0 PreserVision AREDS [id number] Capsule 1 cap PO BID RF: 0 Probiotic 3 billion cell Capsule 3,000 mmu cells PO DAILY RF: 0 cetirizine 10 mg Tablet 10 mg PO DAILY PRN (Reason: Allergy Symptoms) RF: 0 albuterol sulfate 2.5 mg /3 mL (0.083 %) Solution For Nebulization 2.5 mg INHALATION QID PRN (Reason: Shortness Of Breath) RF: 0 ondansetron HCl [Zofran] 4 mg Tablet 4 mg PO TID PRN (Reason: Nausea) RF: 0 calcium carbonate [Tums] 200 mg calcium (500 mg) Tablet,Chewable 200 mg PO Q4H PRN (Reason: Indigestion) RF: 0 hydroxyzine HCl 25 mg Tablet 25 mg PO Q6H PRN (Reason: Itching) RF: 0 Santyl 250 unit/gram Ointment 1 applic TOPICAL UD RF: 0 nitrofurantoin monohyd/m-cryst 100 mg capsule 100 mg PO BID RF: 0 guaifenesin [Mucinex] 600 mg Tablet Extended Release 12hr 600 mg PO BID RF: 0 Referrals Referrals: Doron Amaro, [Primary Care Provider] - The scribe's documentation has been prepared under my direction and personally reviewed by me in its entirety. I confirm that the note above accurately reflects all work, treatment, procedures, and medical decision making performed by me.
[2018-09-13] MEDS: SODIUM CHLORIDE 0.9% 1000ML 1,000 ML IV SCH ×2 (14:47→17:45)
--- NOTE | 2018-09-13 16:12 | Hospitalist Progress Note ---
Date of Service September 13, 2018 Assessment & Plan (1) Severe sepsis: Follow of of Severe sepsis with LA > 4.0 Patient with severe sepsis likely secondary to UTI Repeat lactic acid trending down from 5-3.0 Troponin trending down from 0.291-0.181, likely in setting of demand ischemia from hypotension Patient is remaining hemodynamically stable with blood pressure of 144/70, Heart rate 76 and oxygen 95% on room air Will continue to trend troponin and lactic acid Continue IVF at 60 cc/h Obtain echocardiogram Continue present IV antibiotics with Zosyjerry Supervising Physician Co-Signing Physician Notes Patient seen and examined with THO Lane Patient feeling better compared to admission Blood pressure improved Agree with her notes above Richard Bergeron MD Subjective Pt seen and examined in room 242 for follow-up of severe sepsis. Patient is overall feeling improved. She is currently saturating at 93 to 95% on room air and her blood pressure has improved to 144/72. She denies any chest pain or shortness of breath. Review of Systems Review of Systems: All systems reviewed & are unremarkable except as noted in HPI & below Physical Exam Physical Exam: Gen: Elderly, female, sitting up in bed, more talkative with increased facial color, NAD, A&O x3 HEENT: Normocephalic, atraumatic, conjunctivae moist, sclerae anicteric, mucous membranes dry. Lung: Clear to Auscultation bilaterally, no wheezes/rales/rhonchi Extremities: Bilateral PVD, right lower extremity dressing CDI Skin: Warm, no rash, mild turgor. Results & Data Vital Signs (Past 12 Hours) Vital Signs Temp Pulse Pulse Resp BP BP Pulse Ox 09/13/18 15:59 36.6 C 76 18 144/72 H 95 09/13/18 15:43 74 32 H 95 09/13/18 15:10 74 32 H 09/13/18 15:01 77 26 H 154/103 H 96 09/13/18 15:00 76 36 H 09/13/18 14:50 73 19 92 09/13/18 14:45 76 22 148/74 H 95 09/13/18 14:42 78 31 H 172/93 H 95 09/13/18 14:40 78 24 95 09/13/18 14:32 80 29 H 138/70 95 09/13/18 14:31 73 22 95 09/13/18 14:30 77 33 H 154/141 H 93 09/13/18 14:28 74 23 153/115 H 92 09/13/18 14:20 71 26 H 96 09/13/18 14:16 70 25 H 100/63 94 09/13/18 14:14 71 29 H 53/38 L 94 09/13/18 14:13 76 29 H 53/38 L 94 09/13/18 14:10 70 21 96 09/13/18 14:00 70 22 86/63 L 92 09/13/18 13:51 73 30 H 104/79 09/13/18 13:50 75 24 95 09/13/18 13:45 89 28 H 95 09/13/18 13:44 76 23 118/55 L 95 09/13/18 13:40 75 24 94 09/13/18 13:30 76 27 H 107/60 94 09/13/18 13:25 75 20 119/59 L 94 09/13/18 13:20 75 22 94 09/13/18 13:10 69 27 H 93 09/13/18 13:09 69 29 H 96/41 L 93 09/13/18 13:05 68 25 H 96/41 L 92 09/13/18 13:02 67 25 H 96/41 L 93 09/13/18 13:00 67 28 H 91 09/13/18 12:58 67 26 H 100/45 L 92 09/13/18 12:50 64 24 90 09/13/18 12:40 65 23 93 09/13/18 12:30 68 24 95/45 L 94 09/13/18 12:20 69 18 94 09/13/18 12:10 72 29 H 95 09/13/18 12:00 76 26 H 137/84 93 09/13/18 11:54 94 09/13/18 11:30 72 24 118/51 L 94 09/13/18 11:20 68 24 90 09/13/18 11:19 92 09/13/18 11:10 70 25 H 92 09/13/18 11:07 70 23 92 09/13/18 11:03 70 25 H 93/45 L 92 09/13/18 10:39 36.8 C 80 20 102/53 L 94
[2018-09-13] MEDS ORDERED: ALUMINUM/MAGNESIUM SUSP 30 ML UDC PO PRN (17:02)
[2018-09-13] MEDS ORDERED: PIPERACILL/TAZOBAC CONSULT ACTIVE PRN (17:02)
[2018-09-13] MEDS ORDERED: ONDANSETRON INJ 2 MG/ML 2 ML VIAL IV PRN (17:02)
[2018-09-13] MEDS ORDERED: ALBUT/IPRATROP 3MG/0.5MG NEB 3 ML VIAL NEB PRN (17:02)
[2018-09-13] MEDS ORDERED: POLYETHYLENE (MIRALAX) 17 GM PACK PO PRN (17:02)
[2018-09-13] MEDS ORDERED: MAGNESIUM HYDROXIDE SUSP 30 ML UDC PO PRN (17:02)
[2018-09-13] MEDS ORDERED: LORazepam 0.5 MG TAB PO PRN (17:02)
[2018-09-13] MEDS ORDERED: TRAMADOL HCL 50 MG TABLET PO PRN (17:02)
[2018-09-13] MEDS ORDERED: HYOSCYAMINE SULFATE 0.125 MG TAB PO PRN (17:15)
[2018-09-13] MEDS ORDERED: SODIUM CHLORIDE 0.9% 1000ML 1,000 ML IV SCH (17:15)
[2018-09-13] MEDS ORDERED: PIPERACILLIN/TAZOBACTAM 3.375 GM in DEXTROSE 5% 100 ML IV ONE (17:30)
[2018-09-13 20:37] LABS: Prothrombin Time 10.5 Seconds (9.0-12.0)
[2018-09-13] MEDS: PATIENT'S HEIGHT AND/OR WEIGHT NEEDED SCH (21:20)
[2018-09-13] MEDS: HEPARIN SOD 5,000 UNIT/0.5 ML VIAL SQ SCH (21:20)
[2018-09-13] MEDS: HYDROCORTISONE SOD 50 MG in SYRINGE 0 ML IV SCH (21:21)
[2018-09-13] MEDS: DOCUSATE SODIUM 100 MG CAP PO SCH (21:22)
[2018-09-13] MEDS: FLUTICASONE HFA 110MCG INHALER INH SCH (21:22)
[2018-09-13] MEDS: TRAZODONE HCL 50 MG TAB PO SCH (21:24)
[2018-09-13] MEDS: CEROVITE ADV FORMULA TAB PO SCH (21:25)
[2018-09-14] MEDS: PIPERACILLIN/TAZOBACTAM 3.375 GM in DEXTROSE 5% 100 ML IV SCH ×3 (00:17→17:47)
[2018-09-14] MEDS: HYDROCORTISONE SOD 50 MG in SYRINGE 0 ML IV SCH ×2 (06:18→14:00)
[2018-09-14] MEDS: LEVOTHYROXINE SODIUM 100 MCG TABLET PO SCH (06:18)
[2018-09-14 06:43] LABS: Hematocrit (blood only) 33.5 % (37-47); Hemoglobin 11.2 g/dL (12.0-16.0); Mean Corpuscular Hgb Conc 33.4 g/dL (32-36); Mean Corpuscular Volume 94.6 fL (80-100); Mean Platelet Volume 11.7 fL (7.4-10.4); Platelet Count 198 K/uL (130-400); RDW Coefficient of Variation 13.4 % (11.5-14.5); RDW Standard Deviation 46.7 fL (36.4-46.3); Red Blood Count 3.54 M/uL (4.2-5.4); White Blood Count 15.28 K/uL (4.8-10.8)
[2018-09-14 07:18] LABS: BUN Creatinine Ratio 29.3 (10-20); Calcium 8.1 mg/dl (8.5-10.1); Creatinine Clr Calc Pharmacy 33.1 ml/min; Est GFR (African American) 74.6; Est GFR (Non-African American) 64.4; Potassium 3.6 mmol/L (3.5-5.1)
[2018-09-14 07:21] LABS: Troponin I 0.101 ng/ml (0-0.045)
[2018-09-14] MEDS: FLUTICASONE HFA 110MCG INHALER INH SCH ×2 (08:25→20:31)
[2018-09-14] MEDS: HEPARIN SOD 5,000 UNIT/0.5 ML VIAL SQ SCH ×2 (08:25→20:33)
[2018-09-14] MEDS: ASPIRIN 81 MG ECTAB PO SCH (08:26)
[2018-09-14] MEDS: LACTOBACILLUS ACIDOPHILUS (FLORANEX) TAB PO SCH (08:26)
[2018-09-14] MEDS: CEROVITE ADV FORMULA TAB PO SCH ×2 (08:26→20:33)
[2018-09-14] MEDS: DOCUSATE SODIUM 100 MG CAP PO SCH ×2 (08:26→20:32)
[2018-09-14] MEDS: PANTOprazole 40 MG TAB PO SCH (08:26)
[2018-09-14] MEDS: VESICARE 10 MG PO SCH (08:27)
[2018-09-14] MEDS: ATENOLOL 25 MG TABLET PO SCH (11:33)
--- NOTE | 2018-09-14 16:12 | Hospitalist Progress Note ---
Date of Service September 14, 2018 Assessment & Plan (1) Sepsis: (1) Severe sepsis: (2) Acute UTI: (3) Elevated troponin: Blood pressure stable so far, afebrile WBC still at 15,000 Urine and blood cultures: Pending Clinically improving Continue empiric Zosyn Taper hydrocortisone Restart atenolol at a lower dose, monitor blood pressure closely (4) Acute worsening of stage 3 chronic kidney disease: Baseline creatinine 0.9-1.0 BUN/creatinine 27 and 1.28 today likely in setting of dehydration and sepsis Given IV NSS Creatinine improved to 0.81 DC IV fluids (5) PMR (polymyalgia rheumatica): Patient is on chronic prednisone 5 mg daily Hold oral prednisone and placed on stress dose steroids IV hydrocortisone (6) HTN (hypertension): resume Atenolol at 25mg po daily hold losartan, amlodipine Reinitiate antihypertensives when appropriate (7) Wound of right lower extremity: Chronic right lower extremity wound followed by [facility] wound care Last seen by Tahira ALLEN on 09/06 and was to see wound care today Dressing was removed and wound was inspected, healed Consult wound nurse (8) IBS (irritable bowel syndrome): Levsin as needed (9) Asthma, mild persistent: No acute exacerbation Continue inhaled steroid, DuoNeb as needed (10) Depression: Mood stable Patient on trazodone 75 mg at at bedtime, for insomnia (11) GERD (gastroesophageal reflux disease): Continue PPI (12) DVT prophylaxis: heparin sq q12 hr due to weight Disposition: PT OT ordered Follow up: PCP Dr. Amaro upon discharge Case discussed with patient and her son at the bedside Detail and at length , questions answered They are understanding, and comfortable, agreeable with the plan of care Subjective Follow-up for sepsis, UTI Seen sitting up in bed, comfortable, brighter, awake and alert, in good spirits States she feels better today compared to yesterday Denies abdominal pain or urinary symptoms, denies fevers or chills No chest pain, shortness of breath, nausea vomiting No other symptoms Review of Systems Review of Systems: All systems reviewed & are unremarkable except as noted in HPI & below Physical Exam Physical Exam: General- oriented x 3, not in distress, speaks in sentences with no effort or accessory muscle use Eyes- anicteric Neck- no JVD Lungs- clear breath sounds bilaterally Heart- normal rate, regular rhythm; no murmurs Abdomen- normal bowel sounds, nondistended, soft, nontender Extremities- no pretibial edema, no calf tenderness Right leg dressing in place, no signs of erythema or edema Neuro- alert, oriented x 3; no gross focal neurologic deficits Skin- warm & dry Results & Data Vital Signs (Past 12 Hours) Vital Signs Temp Pulse Resp BP Pulse Ox Pulse Ox 09/14/18 15:23 36.9 C 76 16 133/76 96 09/14/18 13:25 98 09/14/18 12:00 96 09/14/18 11:09 36.5 C 81 20 127/69 94 09/14/18 10:09 94 09/14/18 07:40 36.7 C 70 20 132/70 94 09/14/18 04:29 36.7 C 70 16 123/55 L 93 Laboratory Results Laboratory Results - last 24 hr 09/13/18 09/13/18 09/13/18 18:34 18:34 20:18 WBC RBC Hgb Hct MCV MCH MCHC RDW Std Deviation RDW Coeff of Bulmaro Plt Count MPV PT INR Sodium Potassium Chloride Carbon Dioxide Anion Gap BUN Creatinine Est Cr Clr Drug Dosing Est GFR ( Amer) Est GFR (Non-Af Amer) BUN/Creatinine Ratio Glucose Lactate 5.2 H* 3.4 H* Calcium Troponin I 0.144 H* 09/13/18 09/14/18 09/14/18 20:18 02:45 06:27 WBC 15.28 H RBC 3.54 L Hgb 11.2 L Hct 33.5 L MCV 94.6 MCH 31.6 MCHC 33.4 RDW Std Deviation 46.7 H RDW Coeff of Bulmaro 13.4 Plt Count 198 MPV 11.7 H PT 10.5 INR 1.0 Sodium Potassium Chloride Carbon Dioxide Anion Gap BUN Creatinine Est Cr Clr Drug Dosing Est GFR ( Amer) Est GFR (Non-Af Amer) BUN/Creatinine Ratio Glucose Lactate 1.1 Calcium Troponin I 09/14/18 09/14/18 06:27 06:33 WBC RBC Hgb Hct MCV MCH MCHC RDW Std Deviation RDW Coeff of Bulmaro Plt Count MPV PT INR Sodium 134 L Potassium 3.6 Chloride 103 Carbon Dioxide 25 Anion Gap 6.0 BUN 24 H Creatinine 0.81 D Est Cr Clr Drug Dosing 33.1 Est GFR ( Amer) 74.6 Est GFR (Non-Af Amer) 64.4 BUN/Creatinine Ratio 29.3 H Glucose 106 H Lactate 1.1 Calcium 8.1 L Troponin I 0.101 H*
[2018-09-14] MEDS ORDERED: SODIUM CHLORIDE 0.65% NA SOLN 45 ML (OCEAN) PRN (16:41)
[2018-09-14] MEDS ORDERED: PIPERACILLIN/TAZOBACTAM 3.375 GM in DEXTROSE 5% 100 ML IV SCH (18:00)
[2018-09-14] MEDS: PATIENT'S HEIGHT AND/OR WEIGHT NEEDED SCH ×3 (20:30→21:56)
[2018-09-14] MEDS: TRAZODONE HCL 50 MG TAB PO SCH (20:32)
[2018-09-15] MEDS ORDERED: HYDROCORTISONE SOD 50 MG in SYRINGE 0 ML IV SCH (02:00)
[2018-09-15] MEDS: PIPERACILLIN/TAZOBACTAM 3.375 GM in DEXTROSE 5% 100 ML IV SCH ×3 (02:31→18:08)
[2018-09-15] MEDS: LEVOTHYROXINE SODIUM 100 MCG TABLET PO SCH (06:11)
[2018-09-15 07:07] LABS: Creatinine Clr Calc Pharmacy 39.5 ml/min; Est GFR (African American) 89.9; Est GFR (Non-African American) 77.6
[2018-09-15] MEDS: ASPIRIN 81 MG ECTAB PO SCH (07:57)
[2018-09-15] MEDS: DOCUSATE SODIUM 100 MG CAP PO SCH ×2 (07:57→20:35)
[2018-09-15] MEDS: LACTOBACILLUS ACIDOPHILUS (FLORANEX) TAB PO SCH (07:57)
[2018-09-15] MEDS: FLUTICASONE HFA 110MCG INHALER INH SCH ×2 (07:58→20:34)
[2018-09-15] MEDS: HEPARIN SOD 5,000 UNIT/0.5 ML VIAL SQ SCH ×2 (07:58→20:37)
[2018-09-15] MEDS: VESICARE 10 MG PO SCH (07:59)
[2018-09-15] MEDS: PANTOprazole 40 MG TAB PO SCH (07:59)
[2018-09-15] MEDS: CEROVITE ADV FORMULA TAB PO SCH ×2 (07:59→20:37)
[2018-09-15] MEDS: ATENOLOL 25 MG TABLET PO SCH (08:00)
[2018-09-15] MEDS: ACETAMINOPHEN 325 MG TAB PO PRN (08:03)
[2018-09-15] MEDS ORDERED: ATENOLOL 25 MG TABLET PO STA (08:54)
[2018-09-15 09:43] LABS: BUN Creatinine Ratio 28.1 (10-20); Calcium 8.2 mg/dl (8.5-10.1); Creatinine Clr Calc Pharmacy 37.8 ml/min; Eosinophils # (auto) 0.05 K/uL (0-0.5); Eosinophils % (auto) 0.4 %; Est GFR (African American) 87.5; Est GFR (Non-African American) 75.5; Hematocrit (blood only) 33.1 % (37-47); Immature Granulocytes # (auto) 0.03 K/uL (0.00-0.02); Immature Granulocytes % (auto) 0.3 %; Lymphocytes % (auto) 4.3 %; Mean Corpuscular Hgb Conc 33.2 g/dL (32-36); Mean Corpuscular Volume 95.9 fL (80-100); Mean Platelet Volume 12.1 fL (7.4-10.4); Monocytes # (auto) 0.57 K/uL (0.11-0.59); Monocytes % (auto) 4.9 %; Neutrophils % (auto) 90.1 %; Platelet Count 195 K/uL (130-400); Potassium 3.4 mmol/L (3.5-5.1); RDW Coefficient of Variation 13.4 % (11.5-14.5); RDW Standard Deviation 46.7 fL (36.4-46.3); Red Blood Count 3.45 M/uL (4.2-5.4); White Blood Count 11.75 K/uL (4.8-10.8)
[2018-09-15] MEDS: AMLODIPINE BESYLATE 5 MG TAB PO SCH (09:44)
[2018-09-15] MEDS: LOSARTAN POTASSIUM 50 MG TAB PO SCH ×2 (09:45→20:37)
--- NOTE | 2018-09-15 11:41 | Hospitalist Progress Note ---
Date of Service September 15, 2018 Assessment & Plan (1) Sepsis: (1) Severe sepsis: (2) Acute UTI: (3) Elevated troponin: Blood pressure remained stable so far, afebrile, leukocytosis improved Urine and blood cultures: No growth so far, continue to follow-up She continues to improve clinically Continue empiric Zosyn for now Taper hydrocortisone Resume atenolol, amlodipine, losartan (4) Acute worsening of stage 3 chronic kidney disease: Baseline creatinine 0.9-1.0 BUN/creatinine 27 and 1.28 today likely in setting of dehydration and sepsis Given IV NSS Creatinine improved to 0.81 after being given IV fluids (5) PMR (polymyalgia rheumatica): Patient is on chronic prednisone 5 mg daily Hold oral prednisone and placed on stress dose steroids IV hydrocortisone, taper hydrocortisone (6) HTN (hypertension): resume Atenolol at 50 mg po daily Continue losartan, amlodipine (7) Wound of right lower extremity: Chronic right lower extremity wound followed by [facility] wound care Last seen by Tahira ALLEN on 09/06 and was to see wound care Dressing was removed and wound was inspected, healed Wound care service on board (8) IBS (irritable bowel syndrome): Levsin as needed (9) Asthma, mild persistent: No acute exacerbation Continue inhaled steroid, DuoNeb as needed (10) Depression: Mood stable Patient on trazodone 75 mg at at bedtime, for insomnia (11) GERD (gastroesophageal reflux disease): Continue PPI (12) DVT prophylaxis: heparin sq q12 hr due to weight Disposition: PT OT ordered Follow up: PCP Dr. Amaro upon discharge Case discussed with patient and her son at the bedside In detail and at length , all questions answered They are understanding, and comfortable, agreeable with the plan of care Subjective Follow-up for sepsis, UTI Seen resting bedside chair, patient's son at the bedside In good spirits, oriented x3, alert and awake States she continues to feel improved No abdominal pain or urinary symptoms, no fevers or chills Denies shortness of breath, chest pain, dizziness, palpitations No other symptoms Review of Systems Review of Systems: All systems reviewed & are unremarkable except as noted in HPI & below Physical Exam Physical Exam: General- oriented x 3, not in distress, speaks in sentences with no effort or accessory muscle use Eyes- anicteric Neck- no JVD Lungs- clear BS, no wheezing or crackles bilaterally Heart- normal rate, regular rhythm; positive grade 2 through 3 holosystolic murmur Abdomen- normal bowel sounds, nondistended, soft, nontender Extremities-right lower leg: Heavy dressing in place, no surrounding erythema or warmth or tenderness , no calf tenderness Neuro- alert, oriented x 3; no gross focal neurologic deficits Skin- warm & dry Results & Data Vital Signs (Past 12 Hours) Vital Signs Temp Pulse Pulse Resp BP Pulse Ox 09/15/18 11:37 36.4 C L 71 18 143/69 H 95 09/15/18 09:43 163/68 H 09/15/18 07:25 36.7 C 73 16 176/83 H 94 09/15/18 03:56 36.7 C 81 18 174/81 H 93 09/14/18 23:44 78
[2018-09-15] MEDS ORDERED: POTASSIUM CHLORIDE 10 MEQ TABCR PO ONE (12:00)
[2018-09-15] MEDS ORDERED: CALCIUM CARBONATE 500 MG CHEWABLE TAB PO PRN (18:26)
[2018-09-15] MEDS: TRAZODONE HCL 50 MG TAB PO SCH (20:38)
[2018-09-16] MEDS: PIPERACILLIN/TAZOBACTAM 3.375 GM in DEXTROSE 5% 100 ML IV SCH ×2 (01:54→09:49)
[2018-09-16] MEDS: LEVOTHYROXINE SODIUM 100 MCG TABLET PO SCH (05:41)
[2018-09-16] MEDS: DOCUSATE SODIUM 100 MG CAP PO SCH (07:32)
[2018-09-16] MEDS: FLUTICASONE HFA 110MCG INHALER INH SCH (07:33)
[2018-09-16] MEDS: ASPIRIN 81 MG ECTAB PO SCH (07:33)
[2018-09-16] MEDS: LACTOBACILLUS ACIDOPHILUS (FLORANEX) TAB PO SCH (07:33)
[2018-09-16] MEDS: HEPARIN SOD 5,000 UNIT/0.5 ML VIAL SQ SCH (07:34)
[2018-09-16] MEDS: LOSARTAN POTASSIUM 50 MG TAB PO SCH (07:34)
[2018-09-16] MEDS: VESICARE 10 MG PO SCH (07:35)
[2018-09-16] MEDS: PANTOprazole 40 MG TAB PO SCH (07:35)
[2018-09-16] MEDS: CEROVITE ADV FORMULA TAB PO SCH (07:35)
[2018-09-16] MEDS: AMLODIPINE BESYLATE 5 MG TAB PO SCH (07:37)
[2018-09-16] MEDS: ACETAMINOPHEN 325 MG TAB PO PRN (07:46)
[2018-09-16] MEDS ORDERED: HYDROCORTISONE SOD 50 MG in SYRINGE 0 ML IV SCH (09:00)
[2018-09-16] MEDS ORDERED: predniSONE 10 MG TABLET PO SCH (09:00)
[2018-09-16] MEDS ORDERED: ATENOLOL 50 MG TABLET PO SCH (09:00)
[2018-09-16 09:19] LABS: BUN Creatinine Ratio 15.9 (10-20); Calcium 8.8 mg/dl (8.5-10.1); Creatinine Clr Calc Pharmacy 28.2 ml/min; Est GFR (African American) 60.8; Est GFR (Non-African American) 52.4; Potassium 3.7 mmol/L (3.5-5.1)
--- NOTE | 2018-09-16 11:10 | Discharge Summary ---
Date of Service September 16, 2018 Admission HPI Per Admitting Provider This is a 87-year-old female who has a significant past medical history of hypertension, hypothyroidism, polymyalgia rheumatica on chronic low-dose prednisone, PVD, CKD stage III, GERD, depression, asthma, chronic right lower extremity wound who presents to [facility] ED secondary to ill feeling x1 day. Starting approximately 5 days ago patient noticed symptoms of dysuria, increased urgency and increased frequency with urination. She opted to call PCP on 09/11 regarding symptoms. Due to history of UTI in past she was prescribed Macrobid 100 mg twice daily x5 days. She took her first dose last evening and after dose felt nauseated. She woke up this morning feeling very chilled, fatigued, weak, nausea, dry heaves, myalgia and arthralgias. She denies any documented fever or sweats, chest pain, palpitations, lightheadedness, dizziness, hemoptysis, abdominal pain, flank pain, diarrhea, melena, hematochezia. She does list to having a chronic cough but denies any sputum production or increasing cough frequency. She does have SCHMIDT but this is unchanged. She denies any shortness breath at rest. Up until today her appetite has been doing well. Her home health aide is at bedside and states she was in her normal state of health yesterday. She had a family reunion this past weekend in which she did a lot of cooking. She denies any sick contacts. When home health aide presented to see patient today she was a "different person." Patient overall looked for in appearance to aid. Of significance patient was hospitalized in 12/2017 secondary to chronic right lower extremity traumatic wound requiring IV antibiotics. She is continuing to follow with wound care and states, "it is almost healed." Home health aide elicits she required numerous skin grafts to the site to aid in healing. Admission Exam Per Admitting Provider General- oriented x 3, not in distress, speaks in sentences with no effort or accessory muscle use Eyes- anicteric Neck- no JVD Lungs- clear BS BL no rales/wheezing BL Heart- normal rate, regular rhythm; no murmurs Abdomen- normal bowel sounds, nondistended, soft, nontender Extremities- no pretibial edema, no calf tenderness Neuro- alert, oriented x 3; no gross focal neurologic deficits Skin- warm & dry Principal Diagnosis SEPSIS SECONDARY TO URINARY TRACT INFECTION Discharge Exam General- oriented x 3, not in distress, speaks in sentences with no effort or ac cessory muscle use Eyes- anicteric Neck- no JVD Lungs- clear BS BL no rales/wheezing BL Heart- normal rate, regular rhythm; no murmurs Abdomen- normal bowel sounds, nondistended, soft, nontender Extremities- no pretibial edema, no calf tenderness Neuro- alert, oriented x 3; no gross focal neurologic deficits Skin- warm & dry Discharge Data Allergies Allergy/AdvReac Type Severity Reaction Status Date / Time amoxicillin Allergy Mild PT Verified 09/13/18 11:33 [place] AMOXICILLIN clavulanic acid Allergy Mild HIVES Verified 09/13/18 11:33 levofloxacin [From Levaquin] Allergy Mild ITCHING Verified 09/13/18 11:33 metoclopramide Allergy Mild SICK Verified 09/13/18 11:33 clindamycin Allergy Unknown reaction Verified 09/13/18 11:33 unknown diltiazem Allergy Unknown HIVES Verified 09/13/18 11:33 Consultations 09/13/18 12:32 ED Decision to Admit Stat 09/13/18 17:02 Consult Case Management - Discharge Planning Routine 09/16/18 07:43 Consult Infectious Diseases Routine Hospital Course (1) Severe sepsis: (1) Severe sepsis: (2) Acute UTI: patient was hypotensive on admission given IV fluids and stress dose hydrocortisone BP improved and stabilized afebrile, leukocytosis improved Urine and blood cultures: No growth x 48 hours (partially treated UTI?) given empiric Zosyn x 3 days, tapered hydrocortisone significantly improved discharge plan: Amoxicillin 500mg q8h x 7 days (to complete 10 day antibiotic course) (selected based on previous Urine cultures; patient also allergic to augmentin, cefadroxil, levaquin) repeat UA/Urine culture on ff up with PCP (3) Elevated troponin mildly elevated likely secondary to Sepsis echo: EF 70%, left ventricular wall motion is normal, moderate concentric LVH, grade 1 diastolic dysfunction no cardiac symptoms (4) Acute worsening of stage 3 chronic kidney disease: Baseline creatinine 0.9-1.0 BUN/creatinine 27 and 1.28 on admission likely in setting of dehydration and sepsis Given IV NSS Creatinine improved to 0.81 after being given IV fluids (5) PMR (polymyalgia rheumatica): Patient is on chronic prednisone 5 mg daily held oral prednisone and placed on stress dose steroids IV hydrocortisone resume usual Prednisone 5mg po daily on discharge (6) HTN (hypertension): Atenolol reduced from 100 to 50mg po daily, given creatinine clearance <30 Continue losartan, amlodipine monitor BP as outpatient (7) Wound of right lower extremity: Chronic right lower extremity wound followed by [facility] wound care Last seen by Tahira ALLEN on 09/06 and was to see wound care Dressing was removed and wound was inspected, healed Wound care service was consulted during admission ff up with wound care center as scheduled (8) IBS (irritable bowel syndrome): Levsin as needed (9) Asthma, mild persistent: No acute exacerbation Continue inhaled steroid, DuoNeb as needed (10) Depression: Mood stable Patient on trazodone 75 mg at at bedtime, for insomnia (11) GERD (gastroesophageal reflux disease): Continue PPI Disposition: d/c home ff up with PCP in 1 week ff up with Wound Care Center as scheduled Case discussed with patient and her son at the bedside In detail and at length , all questions answered They are understanding, and comfortable, agreeable with the plan of care Total Time Total Time Spent Total Time Spent (In Minutes): 40 minutes Discharge Plan Discharge Items Patient Disposition: Home - Home Health Services Reason For Visit: SEVERE SEPSIS Discharge Diagnosis: SEVERE SEPSIS LIKELY SECONDARY TO URINARY TRACT INFECTION Discharge Goals: Diagnostic testing and Therapeutic intervention Activity: As commented below Activity Comment: Please resume activity gradually as tolerated. Lifting: Wait until after follow-up appointment Exercise/Sports: Wait until after follow-up appointment Driving/Machine Use Comment: No driving until re-evaluated by Primary Care Physician Non-emergency contact: Primary Care Provider Call non-emergency contact if: you have any medication questions, your symptoms worsen, your pain is not controlled, your pain is worsening, you have a fever, your wound has increased redness, your wound has increased drainage and your wound pain has increased Follow-up/Referrals: Doron Amaro DO [Primary Care Provider] - Diet: Heart Healthy Addtl Provider Instructions: PLEASE REVIEW YOUR NEW MEDICATION LIST AND FOLLOW INSTRUCTIONS CAREFULLY. YOUR NEW ANTIBIOTIC IS AMOXICILLIN 500MG THREE TIMES A DAY X 7 DAYS. PLEASE TAKE PROBIOTIC AND YOGURT DAILY. ALWAYS STAY WELL HYDRATED. ATENOLOL IS BEING REDUCED FROM 100MG TO 50MG DAILY, IN LIGHT OF YOUR KIDNEY FUNCTION. RESUME YOUR USUAL PREDNISONE 5MG PO DAILY TOMORROW. PLEASE FOLLOW UP WITH YOUR PRIMARY CARE PHYSICIAN DR. AMARO IN 5-7 DAYS. CALL PRIMARY CARE PHYSICIAN OR RETURN TO THE ER IMMEDIATELY IF WITH WORSENING OF SYMPTOMS, FEVER/CHILLS, CHANGES WITH URINATION, WEAKNESS, NAUSEA/VOMITING, ABDOMINAL PAIN, DIARRHEA. Prescriptions: New atenolol 50 mg Tablet 50 mg PO DAILY 30 Days Qty: 30 RF: 2 amoxicillin 500 mg capsule 500 mg PO Q8H 7 Days Qty: 21 RF: 0 Continued losartan 50 mg Tablet 50 mg PO BID RF: 0 trazodone 50 mg Tablet 75 mg PO HS RF: 0 prednisone 5 mg Tablet 5 mg PO DAILY RF: 0 amlodipine 5 mg Tablet 5 mg PO DAILY RF: 0 tramadol 50 mg Tablet 50 mg PO BID PRN (Reason: Pain) RF: 0 levothyroxine [Synthroid] 100 mcg Tablet 100 mcg PO QAM RF: 0 lorazepam 0.5 mg Tablet 0.5 mg PO TID PRN (Reason: Anxiety) RF: 0 Premarin 0.625 mg/gram Cream See Rx Instructions .ROUTE .COMPLEX RF: 0 esomeprazole magnesium 40 mg Capsule,Delayed Release(Dr/Ec) 40 mg PO DAILY RF: 0 fluticasone propionate [Flonase Allergy Relief] 50 mcg/actuation [place],Suspension 1 spray INTRANASAL BID RF: 0 ipratropium bromide 0.03 % [place],Non-Aerosol 2 spray INTRANASAL BID PRN (Reason: Allergy Symptoms) RF: 0 cranberry 500 mg Capsule 500 mg PO DAILY RF: 0 Flovent HFA 110 mcg/actuation Hfa Aerosol Inhaler 2 puff INHALATION BID RF: 0 solifenacin [Vesicare] 10 mg Tablet 10 mg PO DAILY RF: 0 aspirin 81 mg Tablet,Delayed Release (Dr/Ec) 81 mg PO DAILY RF: 0 hyoscyamine sulfate [Levsin] 0.125 mg Tablet 0.125 mg PO QID PRN (Reason: Abdominal Pain) RF: 0 docusate sodium [Colace] 100 mg Capsule 100 mg PO BID RF: 0 acetaminophen 500 mg Capsule 500 mg PO BID RF: 0 Eucerin Cream 1 applic TOPICAL QID PRN (Reason: Dry Skin) RF: 0 cholecalciferol (vitamin D3) 1,000 unit Capsule 1,000 unit PO DAILY RF: 0 PreserVision AREDS [id number] Capsule 1 cap PO BID RF: 0 Probiotic 3 billion cell Capsule 3,000 mmu cells PO DAILY RF: 0 cetirizine 10 mg Tablet 10 mg PO DAILY PRN (Reason: Allergy Symptoms) RF: 0 albuterol sulfate 2.5 mg /3 mL (0.083 %) Solution For Nebulization 2.5 mg INHALATION QID PRN (Reason: Shortness Of Breath) RF: 0 ondansetron HCl [Zofran] 4 mg Tablet 4 mg PO TID PRN (Reason: Nausea) RF: 0 calcium carbonate [Tums] 200 mg calcium (500 mg) Tablet,Chewable 200 mg PO Q4H PRN (Reason: Indigestion) RF: 0 hydroxyzine HCl 25 mg Tablet 25 mg PO Q6H PRN (Reason: Itching) RF: 0 Santyl 250 unit/gram Ointment 1 applic TOPICAL UD RF: 0 guaifenesin [Mucinex] 600 mg Tablet Extended Release 12hr 600 mg PO BID RF: 0 Discontinued atenolol 100 mg Tablet 100 mg PO DAILY RF: 0 nitrofurantoin monohyd/m-cryst 100 mg capsule 100 mg PO BID RF: 0 Stand-Alone Forms: [facility] Discharge Orders: Discharge Order (Routine); Ordered 09/16/18 Ordered By: Richard Bergeron Admission Data Admit Date/Time: 09/13/18 14:03 Attending Provider: Richard Bergeron Admit Provider: Richard Bergeron Primary Care Provider: Doron Amaro Other Providers: Richard Bergeron ; Mora Pierson Service: Telemetry Other Interventions: Discharge Summary Assessment (RN) Last Done: 09/16/18 11:39 DC Date/Time DO NOT enter until pt leaves facility: 09/16/18 13:56
--- NOTE | 2018-09-16 17:42 | Hospitalist Progress Note ---
Date of Service September 16, 2018 Assessment & Plan (1) Sepsis: (1) Severe sepsis: (2) Acute UTI: patient was hypotensive on admisison given IV fluids and stress dose hydrocortisone BP improved and stabilized afebrile, leukocytosis improved Urine and blood cultures: No growth x 48 hours (partially treated UTI?) given empiric Zosyn x 3 days, tapered hydrocortisone discharge plan: Amoxicillin 500mg q8h x 7 days (based on previous Urine cultures; patient also allergic to augmentin, cefad roxil, levaquin) repeat UA/Urine culture on ff up with PCP (3) Elevated troponin mildly elevated likely secondary to Sepsis echo: EF 70%, left ventricular wall motion is normal, moderate concentric LVH, grade 1 diastolic dysfunction no cardiac symptoms (4) Acute worsening of stage 3 chronic kidney disease: Baseline creatinine 0.9-1.0 BUN/creatinine 27 and 1.28 on admission likely in setting of dehydration and sepsis Given IV NSS Creatinine improved to 0.81 after being given IV fluids (5) PMR (polymyalgia rheumatica): Patient is on chronic prednisone 5 mg daily held oral prednisone and placed on stress dose steroids IV hydrocortisone resume usual Prednisone 5mg po daily on discharge (6) HTN (hypertension): Atenolol reduced from 100 to 50mg po daily, given creatinine clearance <30 Continue losartan, amlodipine monitor BP as outpatient (7) Wound of right lower extremity: Chronic right lower extremity wound followed by [facility] Last seen by Tahira ALLEN on 09/06 and was to see wound care Dressing was removed and wound was inspected, healed Wound care service was consulted during admission ff up with wound care center as scheduled (8) IBS (irritable bowel syndrome): Levsin as needed (9) Asthma, mild persistent: No acute exacerbation Continue inhaled steroid, DuoNeb as needed (10) Depression: Mood stable Patient on trazodone 75 mg at at bedtime, for insomnia (11) GERD (gastroesophageal reflux disease): Continue PPI (12) DVT prophylaxis: Disposition: d/c home ff up with PCP in 1 week ff up with Wound Care Center as scheduled Case discussed with patient and her son at the bedside In detail and at length , all questions answered They are understanding, and comfortable, agreeable with the plan of care Subjective ff up for UTI, sepsis seen resting in chair comfortable, in good spirits states she feels much better overall no abdominal pain, nausea/vomiting, urinary symptoms no other symptoms states she is ready and would like to be discharged son at bedside, agrees Review of Systems Review of Systems: All systems reviewed & are unremarkable except as noted in HPI & below Physical Exam Physical Exam: General- oriented x 3, not in distress, speaks in sentences with no effort or accessory muscle use Eyes- anicteric Neck- no JVD Lungs- clear BS BL no rales/wheezing BL Heart- normal rate, regular rhythm; no murmurs Abdomen- normal bowel sounds, nondistended, soft, nontender Extremities- no pretibial edema, no calf tenderness Neuro- alert, oriented x 3; no gross focal neurologic deficits Skin- warm & dry Results & Data Vital Signs (Past 12 Hours) Vital Signs Temp Pulse Resp BP Pulse Ox 09/16/18 11:39 37.1 C 67 20 146/69 H 93 09/16/18 11:34 37.1 C 67 20 146/69 H 93 09/16/18 08:43 147/74 H 09/16/18 07:37 36.6 C 71 20 188/74 H 95 Laboratory Results Laboratory Results - last 24 hr 09/16/18 08:41 Sodium 135 L Potassium 3.7 Chloride 102 Carbon Dioxide 24 Anion Gap 9.0 BUN 15 Creatinine 0.96 Est Cr Clr Drug Dosing 28.2 Est GFR ( Amer) 60.8 Est GFR (Non-Af Amer) 52.4 BUN/Creatinine Ratio 15.9 Glucose 122 H Calcium 8.8
--- NOTE | 2018-09-19 11:57 | Coding Query ---
CODING QUERY To promote full compliance with coding requirements relating to patient care, provider participation is requested in all cases of [employer] uncertainty. Please assist us with the question(s) below: Coding Question(s): There is documentation of Acute worsening of stage 3 chronic kidney disease. Please clarify below, in your clinical opinion, regarding the Acute worsening. ( ) Acute Kidney Failure ( X ) Acute Kidney Insufficiency ( ) Acute Kidney Disease ( ) Other: Please Specify Physician's Response(s): Thank you Maegan Wan Principal Diagnosis: "that condition established after study, to be chiefly responsible for occasioning the admission of the patient to the hospital for care." Co-Existing Principal Diagnosis: "when two or more diagnoses equally meet the criteria for principal diagnosis as determined by the circumstances of admission, diagnostic work up, and/or therapy provided, and the Alphabetic Index, Tabular List, or another coding guideline does not provide sequencing direction, any one of the diagnoses may be sequenced first." "When the physician has documented what appears to be a current diagnosis in the body of the record, but has not included the diagnosis in the final diagnostic statement, the physician should be asked whether the diagnosis should be added." (Source Coding [facility] 2 QTR90. p3-4) OPAL
== END 2018-09-16 13:56 | disposition home health service (06) | DRG 872 ==
LOC: ED 10:38 → 2S 14:03